=== PATIENT | male | born 1985 | race Caucasian/White ===

== ENCOUNTER → 2016-08-16 | Outpatient (CLI) | payer OTHER ==
[~2016-08-16] MED LIST: SODIUM CHLORIDE 0.9% 250 ML in EMPTY BAG 1 BAG IV PRN; SODIUM CHLORIDE 0.9% 500 ML in EMPTY BAG 1 BAG IV PRN
[2016-08-16 09:33] VITALS: RESP 16; TEMP 97.9
[2016-08-16 10:44] VITALS: BP 121/66; PULSE 67
== END | disposition home or self-care (01) ==
LOC: PROCWHC3 09:19
PROVIDERS: ATTEND Physician Assistant
DX: K50.10 Crohn's disease of large intestine without complications (principal)
CPT/HCPCS: 96361; 96413; 96415; J1745

== ENCOUNTER 2016-09-22 10:16 | Day surgery (SDC) | payer OTHER ==
[2016-09-20 15:12] VITALS: BMI 24.1
[~2016-09-22 10:16] MED LIST changes: +LACTATED RINGERS 1,000 ML IV SCH; -SODIUM CHLORIDE 0.9% 250 ML in EMPTY BAG 1 BAG IV PRN; -SODIUM CHLORIDE 0.9% 500 ML in EMPTY BAG 1 BAG IV PRN
[2016-09-22] MEDS ORDERED: LIDOCAINE 1% 20 ML VIAL (10MG/ML) FOR IV START SQ ONE (10:33)
[2016-09-22 10:48] VITALS: RESP 16; TEMP 97.5
[2016-09-22] MEDS ORDERED: PROPOFOL 10 MG/ML 20 ML VIAL IV ONE (11:09)
--- NOTE | 2016-09-22 11:30 | P.PCN ---
Date of Procedure: 09/22/16 Procedure(s) Performed: BRIEF HISTORY: Patient is a 31-year-old pleasant white male, scheduled for an elective colonoscopy as a part of evaluation of lower abdominal pain for the last 3 months duration. He was diagnosed with Crohn's ileitis 2008 and has been maintained on Remicade infusions as 2011. The last 3 months is been having lower abdominal pain and some change in bowel habits and was treated with tapering dose of prednisone 6 weeks ago for exacerbation of Crohn's disease. Because of the persistent symptoms he scheduled for colonoscopy to evaluate further. PROCEDURE PERFORMED: Colonoscopy with biopsy. PREOPERATIVE DIAGNOSIS: Long-standing history of Crohn's ileitis. IV sedation per Anesthesia. PROCEDURE: After informed consent was obtained, the patient, was brought into the endoscopy unit. IV conscious sedation was administered by Anesthesia under continuous monitoring. Initially the Olympus CF-160 flexible video colonoscope was then inserted in the rectum, gradually advanced into the cecum without any difficulty. Careful examination was performed as the scope was gradually being withdrawn. Ileocecal valve and the appendiceal orifice were visualized and appeared normal. Prep was excellent. I attempted at intubating the terminal ileum but the mucosa appeared very erythematous and friable and the lumen was narrowed and hence the scope could not be advanced into the terminal ileum. However biopsies were done from this area. Mucosa of the cecum, ascending colon , transverse colon, descending colon, sigmoid colon, and rectum appeared normal. Retroflexion was performed in the rectum and no lesions were seen. The patient tolerated the procedure well. IMPRESSION: Crohn's ileitis with terminal ileal narrowing. Normal-appearing colon from rectum to cecum with no evidence of active colitis. RECOMMENDATIONS: Findings of this examination were discussed with the patient as well as his family. He was advised to follow with the biopsy results. He' ll be seen in the office in 2-3 weeks.
[2016-09-22 11:35] VITALS: PULSE 68
[2016-09-22 11:52] VITALS: BP 110/70
== END 2016-09-22 12:16 | disposition home or self-care (01) ==
LOC: ORWHC2ENDO 10:16
PROVIDERS: ATTEND Internal Medicine Gastroenterology
DX: K50.00 Crohn's disease of small intestine without complications (principal); I34.1 Nonrheumatic mitral (valve) prolapse; J45.990 Exercise induced bronchospasm; Z79.52 Long term (current) use of systemic steroids; Z79.899 Other long term (current) drug therapy
CPT/HCPCS: 88305; 45380; J2704; 99153

== ENCOUNTER → 2016-10-04 | Outpatient (CLI) | payer OTHER ==
[~2016-10-04] MED LIST changes: -LACTATED RINGERS 1,000 ML IV SCH; +SODIUM CHLORIDE 0.9% 250 ML in EMPTY BAG 1 BAG IV PRN; +SODIUM CHLORIDE 0.9% 500 ML in EMPTY BAG 1 BAG IV PRN
[2016-10-04 11:53] VITALS: RESP 16; TEMP 98
[2016-10-04 13:33] VITALS: BP 127/69; PULSE 98
== END | disposition home or self-care (01) ==
LOC: PROCWHC3 11:21
PROVIDERS: ATTEND Physician Assistant
DX: K50.10 Crohn's disease of large intestine without complications (principal)
CPT/HCPCS: 96361; 96413; 96415; J1745

== ENCOUNTER → 2016-11-15 | Outpatient (CLI) | payer OTHER ==
[~2016-11-15] MED LIST changes: -SODIUM CHLORIDE 0.9% 500 ML in EMPTY BAG 1 BAG IV PRN
[2016-11-15 11:35] VITALS: RESP 16; TEMP 97.9
[2016-11-15] MEDS: SODIUM CHLORIDE 0.9% 500 ML in EMPTY BAG 1 BAG IV PRN ×2 (11:41→11:43)
[2016-11-15 13:24] VITALS: BP 108/57; PULSE 87
== END | disposition home or self-care (01) ==
LOC: PROCWHC3 11:17
PROVIDERS: ATTEND Physician Assistant
DX: K50.10 Crohn's disease of large intestine without complications (principal)
CPT/HCPCS: 96413; 96415; J1745

== ENCOUNTER → 2017-01-18 | Outpatient (CLI) | payer OTHER ==
[~2017-01-18] MED LIST changes: +SODIUM CHLORIDE 0.9% 500 ML in EMPTY BAG 1 BAG IV PRN
[2017-01-18 10:56] VITALS: TEMP 98
[2017-01-18 11:20] VITALS: RESP 20
[2017-01-18 12:23] VITALS: BP 109/60; PULSE 68
== END ==
LOC: PROCWHC3 10:19
PROVIDERS: ATTEND Physician Assistant
DX: Z51.11 Encounter for antineoplastic chemotherapy (principal); K50.10 Crohn's disease of large intestine without complications
CPT/HCPCS: 96413; 96415; J1745

== ENCOUNTER → 2017-03-01 | Outpatient (CLI) | payer OTHER ==
[2017-03-01 11:49] VITALS: RESP 16; TEMP 97.8
[2017-03-01 13:21] VITALS: BP 102/60; PULSE 77
== END | disposition home or self-care (01) ==
LOC: PROCWHC3 11:11
PROVIDERS: ATTEND Physician Assistant
DX: K50.10 Crohn's disease of large intestine without complications (principal)
CPT/HCPCS: 96413; 96415; J1745

== ENCOUNTER → 2017-04-26 | Outpatient (CLI) | payer OTHER ==
[~2017-04-26] MED LIST changes: -SODIUM CHLORIDE 0.9% 250 ML in EMPTY BAG 1 BAG IV PRN
[2017-04-26 11:36] VITALS: TEMP 97.8
[2017-04-26 12:53] VITALS: BP 104/50; PULSE 80; RESP 16
== END | disposition home or self-care (01) ==
LOC: PROCWHC3 11:00
PROVIDERS: ATTEND Physician Assistant
DX: K50.10 Crohn's disease of large intestine without complications (principal)
CPT/HCPCS: 96413; 96415; J1745

== ENCOUNTER → 2018-01-12 | Outpatient (CLI) | payer OTHER | END | disposition home or self-care (01) | LOC: LABWHC1 16:28 | PROVIDERS: ATTEND Internal Medicine | DX: K50.80 Crohn's disease of both small and large intestine without complications (principal) | CPT/HCPCS: 36415; 86140 ==

== ENCOUNTER → 2018-04-10 | Outpatient (CLI) | payer OTHER ==
[2018-04-10 09:36] LABS: HGB 15.4 gm/dL (13.0-17.5); MCH 29.3 pg (25.0-35.0); MCHC 34.3 g/dL (31.0-37.0); MCV 85.4 fL (80.0-100.0); Mean Platelet Volume 6.5; Platelet Count 287 k/uL (150-450); RBC 5.26 m/uL (4.30-5.90); RDW 13.2 % (11.5-15.5); WBC 8.3 k/uL (3.8-10.6)
[2018-04-10 17:45] LABS: Hemoglobin A1C 5.1 % (4.0-6.0)
[2018-04-10 19:02] LABS: ACTH 11.1 pg/mL (0.00-45.99)
== END | disposition home or self-care (01) ==
LOC: LABWHC1 08:38
PROVIDERS: ATTEND Urology
DX: E29.1 Testicular hypofunction (principal); Z79.52 Long term (current) use of systemic steroids
CPT/HCPCS: 36415; 82024; 82533; 82670; 83001; 83002; 83036; 84146; 84403; 84443; 85027

== ENCOUNTER → 2018-08-22 | Outpatient (CLI) | payer OTHER ==
[2018-08-23 04:20] LABS: Albumin 4.5 g/dL (3.80-4.90); Albumin/Globulin Ratio 1.88 (1.20-2.10); Anion Gap 7.4 mmol/L (4.00-12.00); Calcium 9.7 mg/dL (8.7-10.3); Carbon Dioxide 27.6 mmol/L (21.6-31.8); Globulin 2.4 g/dL (1.6-3.3); Potassium 4.8 mmol/L (3.5-5.5); Total Bilirubin 0.5 mg/dL (0.2-1.2); Total Protein 6.9 g/dL (6.2-8.2)
== END | disposition home or self-care (01) ==
LOC: LABWHC1 15:58
PROVIDERS: ATTEND Physician Assistant
DX: K50.00 Crohn's disease of small intestine without complications (principal)
CPT/HCPCS: 36415; 80053

== ENCOUNTER → 2019-08-16 | Outpatient (CLI) | payer OTHER ==
--- NOTE | 2019-08-16 15:39 | MR ---
EXAMINATION TYPE: MR brain wo con DATE OF EXAM: 08/16/2019 COMPARISON: None HISTORY: Persistent DURANT CONTRAST: Performed utilizing 0 mL intravenous Gadavist gadolinium contrast. TECHNIQUE: Multiplanar, multiecho imaging on a 3.0 Mildred magnet is performed through the brain. Stud y is performed within 24 hours of arrival to the hospital. The craniovertebral junction is normal. The pituitary is normal. Optic chiasm is visualized is norm al. There are normal vascular flow voids. The right A1 segment may be aplastic. Anterior communicatin g artery is patent. Diffusion-weighted imaging is performed. No abnormal hyperintensity is present to suggest an acute i ntracranial infarct or acute ischemic change. Signal within the brain appears normal. Ventricles and sulci are appropriate for the patient age. Small retention cysts are within the inferior maxillary sinuses. IMPRESSIONS: 1. No acute intracranial process.
== END | disposition home or self-care (01) ==
LOC: RADMRIMAIN 15:00
PROVIDERS: ATTEND Family Medicine
DX: G44.52 New daily persistent headache (NDPH) (principal)
CPT/HCPCS: 70551

== ENCOUNTER → 2020-11-16 | Outpatient (CLI) | payer OTHER ==
[2020-11-16 23:15] LABS: HCT 46.5 % (39.6-50.0); HGB 15.2 g/dL (13.0-17.0); MCH 29.3 pg (27.0-32.0); MCHC 32.7 g/dL (32.0-37.0); MCV 89.8 fL (80.0-97.0); Mean Platelet Volume 8.7 fL (9.5-12.2); Platelet Count 286 X 10*3/uL (140-440); RBC 5.18 X 10*6/uL (4.40-5.60); RDW 14.3 % (11.5-14.5)
[2020-11-17 04:28] LABS: ALT 94 U/L (10-49); AST 31 U/L (14-35); African American GFR (CKD) 129.6 (60.0-200.0); Alkaline Phosphatase 62 U/L (41-126); BUN/Creat Ratio 15.56 Ratio (12.00-20.00); C Reactive Protein <0.4 mg/dL (0.0-0.8); Calcium 9.3 mg/dL (8.7-10.3); Carbon Dioxide 26.9 mmol/L (21.6-31.8); Chloride 103 mmol/L (96-109); Glucose 132 mg/dL (70-110); Non-African American GFR(CKD) 111.8 (60.0-200.0); Potassium 3.7 mmol/L (3.5-5.5); Sodium 140 mmol/L (135-145); Total Bilirubin 0.5 mg/dL (0.3-1.2); Total Protein 6.2 g/dL (6.2-8.2)
[2020-11-17 04:29] LABS: Erythrocyte Sedimentation Rate 2 mm/Hr (0-15)
== END | disposition home or self-care (01) ==
LOC: LABWHC1 16:13
PROVIDERS: ATTEND Physician Assistant
DX: K50.00 Crohn's disease of small intestine without complications (principal)
CPT/HCPCS: 36415; 80053; 85027; 85652; 86140

== ENCOUNTER → 2021-04-27 | Outpatient (CLI) | payer OTHER ==
--- NOTE | 2021-04-28 08:37 | EST ---
EXERCISE STRESS AGE: 35 SEX: M HT: 6' WT: 210 lbs. PROTOCOL: Gil STAGE: 3 DURATION OF EXERCISE: 9:00 HEART RATE REST: 90 BLOOD PRESSURE REST: 117/93 MAXIMUM HEART RATE ACHIEVED: 168 MAXIMUM BLOOD PRESSURE: 169/68 85% MPHR: 159 100% MPHR: 187 METS: 10.3 INDICATIONS: Chest pain CLINICAL INFORMATION: Baseline rhythm is sinus mechanism, rate of 90, normal axis and intervals, poor R-wave progression. Baseline blood pressure 117/93 mmHg. Patient was exercised on Gil protocol for 9 minutes, reaching a peak rate of 168 beats per minute, which is equal to 90% of maximum predicted heart rate. Peak blood pressure 169/68 mmHg. The test was terminated secondary to fatigue. There was no chest pain. Electrocardiographic monitoring revealed no evidence of diagnostic ischemic ST deviation. CONCLUSION: 1. Average exercise tolerance. 2. Normal electrocardiograph response to exercise with no evidence of exercise- induced ischemia. MMODL / IJN: [id number] / MTDD
== END | disposition home or self-care (01) ==
LOC: RADNMMAIN 08:54
PROVIDERS: ATTEND Family Medicine
DX: R07.9 Chest pain, unspecified (principal)
CPT/HCPCS: 93017

== ENCOUNTER → 2021-11-26 | Outpatient (CLI) | payer OTHER ==
[2021-11-26 20:30] LABS: HCT 47.9 % (39.6-50.0); HGB 15.8 g/dL (13.0-17.0); MCH 28.3 pg (27.0-32.0); MCV 85.8 fL (80.0-97.0); Mean Platelet Volume 9.3 fL (9.5-12.2); NRBC Per 100 WBC 0 /100 WBCS (0.0-0.0); Platelet Count 361 X 10*3/uL (140-440); RBC 5.58 X 10*6/uL (4.40-5.60); RDW 12.8 % (11.5-14.5); WBC 9.42 X 10*3/uL (4.50-10.00)
[2021-11-26 20:48] LABS: Erythrocyte Sedimentation Rate 5 mm/Hr (0-15)
[2021-11-26 22:04] LABS: ALT 108 U/L (10-49); AST 51 U/L (14-35); African American GFR (CKD) 105.6 (60.0-200.0); Albumin 4.5 g/dL (3.8-4.9); Alkaline Phosphatase 56 U/L (41-126); BUN/Creat Ratio 11.04 Ratio (12.00-20.00); Blood Urea Nitrogen 11.7 mg/dL (9.0-27.0); Calcium 9.2 mg/dL (8.7-10.3); Carbon Dioxide 22.2 mmol/L (20.0-27.5); Chloride 101 mmol/L (96-109); Glucose 92 mg/dL (70-110); Non-African American GFR(CKD) 91.1 (60.0-200.0); Potassium 3.9 mmol/L (3.5-5.5); Sodium 134 mmol/L (135-145); Total Protein 7.5 g/dL (6.2-8.2)
[2021-11-26 22:05] LABS: C Reactive Protein <0.30 mg/dL (0.00-0.80)
== END | disposition home or self-care (01) ==
LOC: LABWHC1 12:53
PROVIDERS: ATTEND Internal Medicine Gastroenterology
DX: K50.00 Crohn's disease of small intestine without complications (principal)
CPT/HCPCS: 36415; 80053; 85027; 85652; 86140; 86480

== ENCOUNTER → 2022-04-18 | Day surgery (SDC) | payer OTHER ==
[~2022-04-18] MED LIST changes: +GLUCAGON 1 MG/ML VIAL IM STA; -SODIUM CHLORIDE 0.9% 500 ML in EMPTY BAG 1 BAG IV PRN
[2022-04-18 08:49] VITALS: BP 102/58; PULSE 82; RESP 16; TEMP 98.6
--- NOTE | 2022-04-19 08:38 | MR ---
EXAMINATION TYPE: MR Enterography DATE OF EXAM: 04/18/2022 COMPARISON: Not available at time of dictation. PACS downtime. Prior CT abdomen and pelvis report on ly available from 2016. HISTORY: Crohn's disease CONTRAST: Standard multiplanar, multisequence imaging of the abdomen is performed without and with IV contrast, patient is injected with 11 mL intravenous Gadavist gadolinium contrast. Oral NeuLumEX was given as per enterography protocol. FINDINGS: Exam noted suboptimal as there is motion artifact degradation present. Bowel: Adequate fluid distention of stomach without suspicious eccentric mucosal thickening or enhanc ement. Duodenal sweep shows fairly adequate fluid distention without suspicious eccentric mucosal thi ckening or enhancement. Small bowel loops show less than adequate fluid distention of some of the loo ps. Moderate wall thickening with symmetric mural enhancement small bowel loops of the proximal to mi d jejunum in the left upper to mid abdomen noted. Mild vasa engorgement at this level identified . Fl uid-filled cecum coronal image 10. Terminal ileum not greatly distended without suspicious eccentric wall thickening or enhancement. Fairly adequate fluid filled distention of the colon without suspicio us eccentric wall thickening or mural enhancement. No definitive areas of restricted diffusion. No ob vious fistula tracts. Other: Lung bases are grossly clear. The liver, gallbladder, spleen, pancreas, and both adrenal gland s appear within normal limits. Incidental 10 x 6 mm benign-appearing thin-walled cyst lower pole of t he right kidney coronal image 23 and 7 mm benign thin-walled cyst mid to lower pole left kidney coron al image 27. No hydronephrosis seen bilaterally. No AAA is evident. Urinary bladder appears within no rmal limits. Slight scoliotic curvature near lumbosacral junction noted. IMPRESSION: Acute mild inflammatory change suspected involving proximal to mid jejunal loops in the l eft upper to mid abdomen. Correlate clinically. No active inflammatory change level of the terminal i leum.
== END ==
LOC: RADMRIMAIN 08:11
PROVIDERS: ATTEND Internal Medicine Gastroenterology
DX: K50.90 Crohn's disease, unspecified, without complications (principal)
CPT/HCPCS: 96372; 36415; 72197; 74183; J1610; A9585

== ENCOUNTER → 2022-04-25 | Outpatient (CLI) | payer OTHER ==
[2022-04-25 15:04] LABS: Estradiol 37.2 pg/mL
== END | disposition home or self-care (01) ==
LOC: LABWHC1 08:49
PROVIDERS: ATTEND Urology
DX: R79.89 Other specified abnormal findings of blood chemistry (principal)
CPT/HCPCS: 36415; 82670; 84403

== ENCOUNTER → 2022-06-17 | Outpatient (CLI) | payer OTHER ==
[2022-06-17 23:30] LABS: Basophils # (A) 0.05 X 10*3/uL (0.00-0.10); Basophils % (A) 0.6 %; Eosinophils # (A) 0.58 X 10*3/uL (0.04-0.35); Eosinophils % (A) 6.9 %; HCT 47.1 % (39.6-50.0); HGB 15.8 g/dL (13.0-17.0); Immature Grans, Automated 0.2 %; Lymphocytes # (A) 3.73 X 10*3/uL (0.90-5.00); Lymphocytes % (A) 44.2 %; MCH 28.5 pg (27.0-32.0); MCHC 33.5 g/dL (32.0-37.0); Mean Platelet Volume 9.6 fL (9.5-12.2); Monocytes # (A) 0.53 X 10*3/uL (0.20-1.00); Monocytes % (A) 6.3 %; NRBC Per 100 WBC 0 /100 WBCS (0.0-0.0); Neutrophils # (A) 3.53 X 10*3/uL (1.80-7.70); Neutrophils % (A) 41.8 %; Platelet Count 295 X 10*3/uL (140-440); RBC 5.54 X 10*6/uL (4.40-5.60); RDW 13.3 % (11.5-14.5); WBC 8.44 X 10*3/uL (4.50-10.00)
[2022-06-18 01:13] LABS: Hepatitis A Ab, Total Nonreactive (Nonreactive); Hepatitis A Antibody IgM Nonreactive (Nonreactive); Hepatitis B Surface Antigen Nonreactive (Nonreactive)
[2022-06-18 01:37] LABS: % Iron Saturation 37.47 (15.00-50.00); ALT 54 U/L (10-49); AST 32 U/L (14-35); Albumin 4.6 g/dL (3.8-4.9); Albumin/Globulin Ratio 1.98 (1.60-3.17); Alkaline Phosphatase 60 U/L (41-126); BUN/Creat Ratio 9.57 Ratio (12.00-20.00); Blood Urea Nitrogen 11.1 mg/dL (9.0-27.0); C Reactive Protein <0.30 mg/dL (0.00-0.80); Calcium 9.4 mg/dL (8.7-10.3); Carbon Dioxide 23.7 mmol/L (20.0-27.5); Chloride 104 mmol/L (96-109); Ferritin 56.7 ng/mL (22.0-322.0); Globulin 2.3 g/dL (1.6-3.3); Glucose 99 mg/dL (70-110); Iron 160 ug/dL (65-175); Non-African American GFR(CKD) 81.1 (60.0-200.0); Potassium 4.2 mmol/L (3.5-5.5); Sodium 140 mmol/L (135-145); Total Iron Binding Capacity 427 ug/dL (228-460); Total Protein 6.9 g/dL (6.2-8.2)
[2022-06-18 05:04] LABS: Hepatitis B Surface Antibody Reactive (Nonreactive)
== END | disposition home or self-care (01) ==
LOC: LABWHC1 16:32
PROVIDERS: ATTEND Internal Medicine
DX: K50.813 Crohn's disease of both small and large intestine with fistula (principal)
CPT/HCPCS: 36415; 80053; 82306; 82607; 82728; 83540; 83550; 85025; 86140; 86706; 86708; 86709; 87340

== ENCOUNTER → 2022-11-04 | Outpatient (CLI) | payer OTHER ==
--- NOTE | 2022-11-04 08:51 | US ---
EXAMINATION TYPE: US gallbladder DATE OF EXAM: 11/04/2022 COMPARISON: CT 07/22 CLINICAL HISTORY: K80.20 calc of gallbladder w/o cholecyst w/o obst. Christopher's dz, had recent CT at [facility] that showed gb stones TECHNIQUE: Multiple sonographic images of the right upper quadrant are obtained. 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
== END | disposition home or self-care (01) ==
LOC: RADUSWWP 08:21
PROVIDERS: ATTEND Surgery
DX: K80.20 Calculus of gallbladder without cholecystitis without obstruction (principal)
CPT/HCPCS: 76705

== ENCOUNTER 2022-12-21 10:04 | Day surgery (SDC) | payer OTHER ==
[~2022-12-21 10:04] MED LIST changes: -GLUCAGON 1 MG/ML VIAL IM STA; +LACTATED RINGERS 1,000 ML IV SCH; +LIDOCAINE 1% (10MG/ML) FOR IV START INTRADERMA PRN
[2022-12-21 10:24] VITALS: TEMP 98.5
[2022-12-21] MEDS ORDERED: PROPOFOL 10 MG/ML 20 ML VIAL IV ONE (10:42)
--- NOTE | 2022-12-21 10:57 | P.PCN ---
Date of Procedure: 12/21/22 Procedure(s) Performed: BRIEF HISTORY: Patient is a 37-year-old pleasant white male scheduled for an elective colonoscopy as a part of long-standing history of Crohn's ileitis diagnosed in 2008. His been maintained on infliximab infusion since 2010. Lately has been having intermittent lower abdominal pain and diarrhea and was treated with prednisone for 6 weeks two months ago. He had another episode of severe lower abdominal pain 3 weeks ago when the emergency room at [facility] and had a CT of abdomen and pelvis done that was unremarkable. because of persistent lower abdominal pain he scheduled for endoscopy today. PROCEDURE PERFORMED: Colonoscopy with biopsies . PREOPERATIVE DIAGNOSIS: lower abdominal pain and diarrhea and history of Crohn's ileitis. IV sedation per Anesthesia. PROCEDURE: After informed consent was obtained, the patient, was brought into the endoscopy unit. IV sedation was administered by Anesthesia under continuous monitoring. Digital rectal examination was normal. Initially the Olympus CF-160 flexible video colonoscope was then inserted in the rectum, gradually advanced into the cecum without any difficulty. Careful examination was performed as the scope was gradually being withdrawn. Ileocecal valve and the appendiceal orifice were visualized and appeared normal. Prep was excellent. terminal ileum was intubated. The mucosa appeared normal. There was a benign stricture involving the distal ileum about 5 cm from the ileocecal valve with no active ileitis and biopsies were done from this area. Mucosa of the cecum, ascending colon, transverse colon, descending colon, sigmoid colon, and rectum appeared normal. Retroflexion was performed in the rectum and no lesions were seen. The patient tolerated the procedure well. IMPRESSION: Normal-appearing colon from rectum to cecum with no evidence of colitis or colorectal neoplasia . Mild narrowing of the distal ileum 5 cm from the ileocecal valve with no active ileitis RECOMMENDATIONS: Findings of this examination were discussed with the patient as well as his family. He was advised to follow with the biopsy results. In the meantime will await MR enterography.. He will continue with infliximab infusions every 8 weeks..
[2022-12-21 11:01] VITALS: RESP 16
[2022-12-21 11:15] VITALS: BP 119/76; PULSE 88
== END 2022-12-21 11:54 | disposition home or self-care (01) ==
LOC: ORWHC2ENDO 10:04
PROVIDERS: ATTEND Internal Medicine Gastroenterology
DX: K63.89 Other specified diseases of intestine (principal); J45.909 Unspecified asthma, uncomplicated; K21.9 Gastro-esophageal reflux disease without esophagitis; K50.90 Crohn's disease, unspecified, without complications; Z79.51 Long term (current) use of inhaled steroids; Z79.899 Other long term (current) drug therapy; Z98.890 Other specified postprocedural states
CPT/HCPCS: 88305; 45380; J2704

== ENCOUNTER → 2023-01-28 | Outpatient (CLI) | payer OTHER ==
[2023-01-28 23:10] LABS: ALT 39 U/L (10-49); AST 25 U/L (14-35); Albumin 4.3 d/dL (3.8-4.9); Albumin/Globulin Ratio 1.87 Ratio (1.60-3.17); Alkaline Phosphatase 44 U/L (41-126); Bilirubin, Conjugated <0.20 mg/dL (0.20-0.40); Bilirubin,Unconjugated >0 mg/dL (0.20-1.00); Globulin 2.3 d/dL (1.6-3.3); Total Bilirubin 0.2 mg/dL (0.3-1.2); Total Protein 6.6 d/dL (6.2-8.2)
[2023-01-28 23:55] LABS: Hepatitis A Antibody IgM Nonreactive; Hepatitis B Core IgM Nonreactive; Hepatitis B Surface Antigen Nonreactive; Hepatitis C IgG Antibody Nonreactive
== END | disposition home or self-care (01) ==
LOC: LABWHC1 11:23
PROVIDERS: ATTEND Internal Medicine
DX: K50.80 Crohn's disease of both small and large intestine without complications (principal)
CPT/HCPCS: 36415; 80074; 80076; 82248; 86480; 86704

== ENCOUNTER → 2023-11-25 | Outpatient (CLI) | payer OTHER | END | disposition home or self-care (01) | LOC: LABWHC1 08:56 | PROVIDERS: ATTEND Urology | DX: R79.89 Other specified abnormal findings of blood chemistry (principal) | CPT/HCPCS: 36415; 84403 ==

== ENCOUNTER 2024-03-28 09:24 | Day surgery (SDC) | payer OTHER ==
--- NOTE | 2024-04-16 16:20 | MR ---
Patient: Bryon Lane P Ordering Physician: Unknown, Unknown ID: [id number] Phone, Pager: Phone: N/ A Pager: N/A : [phone] Age/Gender: 38Y, M Primary Location: N/A Procedure: MR Enterography wo/w con Study Date: 03/28/2024 9:18:54 AM EXAMINATION TYPE: MR Enterography DATE OF EXAM: 03/31/2024 7:35 AM COMPARISON: 04/18/2022 CLINICAL INDICATION: Crohn's disease flareup TECHNIQUE: Standard multiplanar, multisequence imaging of the abdomen is performed without and with I V contrast, patient is injected with 10 mL intravenous gadolinium contrast. Oral Volumen was given as per enterography protocol. FINDINGS: LOWER CHEST: No significant findings. ABDOMEN Bowel: The small bowel distention is inadequate proximally. Nondistention of the segment of the term inal ileum is present coronal imaging series 01 image 10 rNo extending 5.5 cm mild dilation of the me dial upstream bowel to 3.3 cm. There is mucosal hyperenhancement within this region. No evidence for stricture. No evidence for abscess. Peritoneum: No evidence of pneumoperitoneum, free fluid, or adenopathy. Liver: Unremarkable. Gallbladder and Bile ducts: Unremarkable. Pancreas: Unremarkable. Spleen: Unremarkable. Adrenal glands: Unremarkable. Kidneys: Unremarkable. Bladder: Unremarkable. Reproductive: Unremarkable. Lymph Nodes: Vasculature: Unremarkable. No aortic aneurysm. Musculoskeletal: The osseous structures appear intact. Abdominal wall: Unremarkable. IMPRESSION: Active Crohn's disease within the right abdomen near the terminal ileum with at least 2 areas of muco regina hyperenhancement. Mild dilation of the upstream bowel from this region suggesting some degree of obstruction.
== END 2024-03-28 11:45 ==
LOC: RADMRIMAIN 09:24
PROVIDERS: ATTEND Internal Medicine Gastroenterology
DX: K50.90 Crohn's disease, unspecified, without complications (principal)
CPT/HCPCS: 72197; 74183

== ENCOUNTER → 2024-04-01 | Outpatient (CLI) | payer OTHER | END | disposition home or self-care (01) | LOC: LABWHC1 09:34 | PROVIDERS: ATTEND Urology | DX: R79.89 Other specified abnormal findings of blood chemistry (principal) | CPT/HCPCS: 36415; 84403 ==

== ENCOUNTER → 2024-05-17 | Outpatient (CLI) | payer OTHER ==
[2024-05-17 15:22] LABS: Basophils # (A) 0.1 k/uL (0-0.2); Basophils % (A) 1 %; Eosinophils # (A) 0.5 k/uL (0-0.7); Eosinophils % (A) 5 %; HCT 46.2 % (39.0-53.0); HGB 14.9 gm/dL (13.0-17.5); Lymphocytes # (A) 3.5 k/uL (1.0-4.8); Lymphocytes % (A) 35 %; MCH 28.2 pg (25.0-35.0); MCHC 32.3 g/dL (31.0-37.0); MCV 87.2 fL (80.0-100.0); Mean Platelet Volume 6.4; Monocytes # (A) 0.4 k/uL (0-1.0); Monocytes % (A) 4 %; Neutrophils # (A) 5.2 k/uL (1.3-7.7); Neutrophils % (A) 52 %; Platelet Count 262 k/uL (150-450); RDW 13.3 % (11.5-15.5)
[2024-05-17 15:37] LABS: ALT 29 U/L (4-49); AST 29 U/L (17-59); African American GFR (CKD) 88 (>60 ml/min/1.73 sqM); Albumin 4.3 g/dL (3.5-5.0); Alkaline Phosphatase 46 U/L (38-126); Anion Gap 5 mmol/L; Blood Urea Nitrogen 14 mg/dL (9-20); C Reactive Protein <0.5 mg/dL (<1.0); Carbon Dioxide 26 mmol/L (22-30); Chloride 106 mmol/L (98-107); Glucose 95 mg/dL (74-99); Non-African American GFR(CKD) 76 (>60 ml/min/1.73 sqM); Potassium 3.9 mmol/L (3.5-5.1); Sodium 137 mmol/L (137-145); Total Bilirubin 0.6 mg/dL (0.2-1.3); Total Protein 6.6 g/dL (6.3-8.2)
[2024-05-18 02:43] LABS: Erythrocyte Sedimentation Rate 6 mm/Hr (0-15)
[2024-05-18 02:51] LABS: Estradiol <20.0 pg/mL
== END | disposition home or self-care (01) ==
LOC: LABT 14:47
PROVIDERS: ATTEND Urology
DX: K50.80 Crohn's disease of both small and large intestine without complications (principal); R79.89 Other specified abnormal findings of blood chemistry
CPT/HCPCS: 80053; 82670; 85025; 85652; 86140; 86480

== ENCOUNTER → 2024-11-08 | Outpatient (CLI) | payer OTHER ==
[2024-11-08 16:22] LABS: HCT 45.7 % (39.6-50.0); HGB 15.6 g/dL (13.0-17.0); MCH 28.1 pg (27.0-32.0); MCHC 34.1 g/dL (32.0-37.0); MCV 82.3 FL (80.0-97.0); Mean Platelet Volume 9.1 FL (9.5-12.2); NRBC Per 100 WBC 0 X 10*3/uL (0.00-0.01); Platelet Count 289 X 10*3/uL (140-440); RBC 5.55 X 10*6/uL (4.40-5.60); RDW 12.8 % (11.5-14.5); WBC 9.65 X 10*3/uL (4.50-10.00)
== END | disposition home or self-care (01) ==
LOC: LABWHC1 11:12
PROVIDERS: ATTEND Urology
DX: R79.89 Other specified abnormal findings of blood chemistry (principal); E29.1 Testicular hypofunction
CPT/HCPCS: 36415; 84403; 85027